=== PATIENT | female | born 1950 | race Caucasian/White ===

== ENCOUNTER → 2018-02-11 | Day surgery (SDC) | payer OTHER ==
--- NOTE | 2018-01-19 08:41 | History and Physical: Surg Cnt ---
History & Physical Date Jan 19, 2018. Chief Complaint sinus infections History of Present Illness The patient is a 67 year old female with complaints of chronic sinusitis, headaches, blocked ears Additional History Hepatic Disease: No Endocrine Disorder: No Kidney Disease: No Hypertension: Yes Heart Disease: No Bleeding Tendencies: No Infectious Diseases: No Allergies Coded Allergies: Meperidine (Verified Adverse Reaction, Intermediate, LOW BP, 05/18/15) No Known Allergies (Verified , 10/29/06) Home Medications Scheduled Calcium Carbonate (Tums), 1-2 TABS PO PRN Folic Acid (Folvite), 400 MCG PO DAILY Losartan Potassium (Cozaar), 12.5 MG PO DAILY Physical Examination Skin: warm/dry, no rash Eyes: normal inspection, EOMI, sclerae normal ENT: normal ENT inspection, pharynx normal Head: normocephalic, atraumatic Neck: supple, no adenopathy, trachea midline Respiratory/Chest: lungs clear, normal breath sounds, no respiratory distress Cardiovascular: regular rate, rhythm, no edema, no murmur Abdomen / GI: normal bowel sounds, non tender Back: normal inspection Extremities: normal inspection, normal range of motion Neurologic/Psych: no motor/sensory deficits, alert, normal reflexes, oriented x 3 Diagnosis chronic otitis and sinusitis Plan of Treatment endoscopic sinus surgery, balloon eustschian tubes
[2018-02-09 08:09] VITALS: Ht 157.5 cm; Wt 72.3 kg
[~2018-02-11] VITALS: Ht 157.5 cm; Wt 72.3 kg
[~2018-02-11] MED LIST: ALUMSUS2 PO; ATROPINE SULFATE 0.1 MG/ML 5ML SYR IV PRN; CALC500C3 PO; CEFAZOLIN 1000MG IV PUSH 7.5 ML IV SCH; DEXAMETHASONE SOD INJ 4 MG/ML VIAL IV PRN; DEXAMETHASONE SOD INJ 4 MG/ML VIAL ONE; EpHEDrine SULFATE INJ 50 MG/ML AMP IV PRN; EpINEphrine INJ 1MG/ML AMP 1 MG/ML AMP ONE; FENTANYL CITRATE INJ 50 MCG/1 ML 2 ML VIAL IV PRN; FENTANYL CITRATE INJ 50 MCG/1 ML 2 ML VIAL ONE; KETOROLAC TROMETHAMINE 30 MG/ML VIAL IV. PRN; LABETALOL HCL IV 5 MG/ML 20ML IV PRN; LACTATED RINGER'S 1000ML 1,000 ML IV SCH; LIDO 2%/EPINEPHRINE 1:100000 20 ML VIAL INFIL ONE; LIDOCAINE 4% MPF SOAK 5 ML = 1 DOSE TOP ONE; LIDOCAINE HCL 2% 2 ML VIAL (20MG/ML) ONE; LISI-789 PO; METOCLOPRAMIDE HCL INJ 5 MG/ML 2 ML VIAL IV PRN; MIDAZOLAM HCL 1 MG/ML 2ML VIAL ONE; MoRPHine SULFATE 10 MG/ML CARP/VIAL IV PRN; ONDANSETRON INJ 2 MG/ML 2 ML VIAL IV PRN; ONDANSETRON INJ 2 MG/ML 2 ML VIAL ONE; OXYC-57 PO; OXYCODONE/ACETAMINOPHEN 5-325 TAB PO PRN; PATIENT'S HEIGHT AND/OR WEIGHT NEEDED SCH; PHENYLEPHRINE 100MCG/ML 5ML SYR IV PRN; PROPOFOL IV EMULSION 10 MG/ML 20 ML VIAL IV ONE; SODIUM CHLORIDE 0.9% 1000ML 1,000 ML IV SCH
--- NOTE | 2018-02-11 08:56 | History & Physical Bridge Note ---
H&P Re-Evaluation Bridge Note: I have examined the patient, reviewed the History & Physical and in the interval since the performance of the History & Physical I have noted the following changes of clinical significance: No changes noted
--- NOTE | 2018-02-11 11:07 | [facility] Post Operative Brief Note ---
Immediate Operative Summary Operative Date Feb 11, 2018. Pre-Operative Diagnosis Chronic Sinusitis Post-Operative Diagnosis same Procedure(s) Performed Endoscopic Sinus Surgery, Right & Left Frontal Sinuses, Right and Left Maxillary Sinues, Right and Left Total Ethmoidectomies and Balloon Right and Left Eustachian Tubes Surgeon Dr. Malissa Roger Windows Systems Administrator Surgeon(s) 0 Estimated Blood Loss 150ml Findings Consistent with Post-Op Diagnosis Specimens none Drains None Anesthesia Type General Complication(s) none Disposition Accompanied Pt To Recovery: yes Disposition: Recovery Room / PACU
--- NOTE | 2018-02-11 11:13 | [facility] Operative Report ---
Operative Report Operative Date Feb 11, 2018. Pre-Operative Diagnosis Chronic Sinusitis Post-Operative Diagnosis same Procedure(s) Performed Endoscopic Sinus Surgery, Right & Left Frontal Sinuses, Right and Left Maxillary Sinues, Right and Left Total Ethmoidectomies and Balloon Right and Left Eustachian Tubes Surgeon Dr. Malissa Roger Day Care Assistant Surgeon(s) 0 Estimated Blood Loss 150ml Findings Mucoceles right and left ethmoids with block nasal frontal ducts Specimens none Drains None Anesthesia Type General Complication(s) none Disposition yes Recovery Room / PACU Indications 67-year-old lady with significant recurrent chronic sinusitis causing headaches infections and eustachian tube obstruction Description of Procedure The patient was brought to the operating room placed supine position general anesthesia was induced using LMA. She was prepped and draped in the usual sterile manner and the Ludei device was calibrated and used for the entire procedure. The left eustachian tube was dilated using the eustachian tube balloon which was left inflated for 2 minutes and then deflated and removed. The right eustachian tube was dilated in a similar manner. The sinuses were decongested using topical cottonoids with a solution of 4 cc of 4% Xylocaine mixed with 1 cc of epinephrine. Injection of 2% Xylocaine with 1-100,000 strength epinephrine was also used. The left nasal frontal duct was cannulated with the guidewire and dilated using the 6 mm balloon the guidewire was left in place as a marker for frontal sinusotomy. The shaver coupled with the BrainLab device was used to remove the residual anterior wall of the Agger- nasi-cell and adhesions between the middle turbinate and the lateral wall, following the guidewire superiorly, widely opening up the nasofrontal duct but leaving the mucosa posteriorly and laterally intact. At this point total ethmoidectomy was performed there were mucoceles in the anterior and posterior ethmoids which were removed using the shaver, removing purulent material from the anterior and posterior ethmoid air cells. The skull base and lamina papyracea were delineated with the BrainLab device and followed anteriorly to exonerate all the posterior and all the anterior ethmoid air cells up to the previously dilated nasofrontal duct the maxillary sinus was opened by removing the adhesions from the middle turbinates laterally. The right frontal sinusotomy total ethmoidectomy maxillary sinus antrostomy was performed in a similar manner. Contour stents were placed in the nasal frontal ducts and regular propel stents were placed in the ethmoid cavities bilaterally. The patient tired procedure well was taken recovery area in satisfactory condition. I attest to the content of the Intraoperative Record and any orders documented therein. Any exceptions are noted below.
--- NOTE | 2018-02-11 11:14 | Discharge Instructions-SurgCtr ---
Discharge Instructions Date of Service Feb 11, 2018. Visit Reason for Visit: Chronic Sinusitis Discharge Discharge Diagnosis / Problem: Same Discharge Goals Goal(s): Improve disease control Activity Recommendations Activity Limitations: resume your previous activity Anesthesia . Post Anesthesia Instructions: If you have had General Anesthesia or IV Sedation: * Do not drive today. * Resume driving when surgeon permits. * Do not make important decisions or sign legal documents today. * Call surgeon for: 1. Temperature elevations greater than 101 degrees F. 2. Uncontrollable pain. 3. Excessive bleeding. 4. Persistent nausea and vomiting. 5. Medication intolerance (nausea, vomiting or rash). * For nausea and vomiting use only clear liquids such as: tea, soda, bouillon until nausea subsides, then gradually increase diet as tolerated. * If you have any concerns or questions, call your surgeon's office. If physician is unavailable and it is an emergency, call 911 or go to the nearest emergency room. . Instructions / Follow-Up Instructions / Follow-Up ACTIVITY RECOMMENDATIONS: * Being up and around is good, but no strenuous activity, heavy lifting or physical exertion for one week. * Keep your head elevated 30 degrees when lying down or sleeping. * Do not blow your nose for 48 hours, sniff back instead. * Avoid hot showers. OVER THE COUNTER MEDICATIONS: * You may use Tylenol * Avoid aspirin or aspirin containing products, e.g. as they may increase bleeding. SPECIAL CARE INSTRUCTIONS: * Expect to have bloody drainage from your nose and/or down your throat for one to three days. Change drip pad as needed. * Begin irrigating your nose with saline solution today, at least six to ten times per day and sniff back to help remove old clots or crust. * You may experience nasal and facial congestion, pain and pressure, this is normal. * Please call with any significant and/or progressive pain, redness, swelling around the eyes, visual changes, fever of 101.5 degrees F, active bleeding or any problems or concerns. * If active bleeding occurs, spray the nose three times at one minute intervals with Afrin spray and call or cell phone: . If unable to reach the doctor, go to the nearest Emergency Department. Special Diet: * Avoid extremely hot fluids. FOLLOW UP VISIT: Follow-up Visit with Dr. Roger If not already scheduled, please call to schedule. Diet Recommendations Home Diet: no limitations Procedures Procedures Performed: Endoscopic Sinus Surgery, Right & Left Frontal Sinuses, Right and Left Maxillary Sinues, Right and Left Total Ethmoidectomies and Balloon Right and Left Eustachian Tubes Pending Studies Studies pending at discharge: no Medical Emergencies . Who to Call and When: Medical Emergencies: If at any time you feel your situation is an emergency, please call 911 immediately. . Non-Emergent Contact Non-Emergency issues call your: Primary Care Provider . . "Provider Documentation" section prepared by Cece Roger. Tory [facility]OH[facility] Drug Monitoring Program Search Results: no issues identified
[2018-02-11 12:01] VITALS: TEMP 36.5
--- NOTE | 2018-02-11 12:32 | Anesthesia Progress Nt - [facility] ---
Anesthesia Post Op Note Date & Time Feb 11, 2018 at 12:31 Vital Signs Pain Intensity: 0 Vital Signs Past 12 Hours Date Time Temp Pulse Resp B/P (MAP) Pulse Ox O2 Delivery O2 Flow Rate FiO2 02/11/18 12:01 36.5 73 18 163/83 (109) 96 Room Air 02/11/18 11:53 37 71 13 02/11/18 11:53 73 13 91 02/11/18 11:50 141/90 02/11/18 11:48 77 12 02/11/18 11:48 78 12 96 02/11/18 11:45 143/86 02/11/18 11:43 69 11 02/11/18 11:43 68 11 92 02/11/18 11:41 138/89 02/11/18 11:38 71 13 02/11/18 11:38 74 13 96 02/11/18 11:36 148/90 02/11/18 11:33 74 7 100 02/11/18 11:33 75 7 02/11/18 11:30 140/86 02/11/18 11:28 74 8 02/11/18 11:28 73 8 98 02/11/18 11:26 124/84 02/11/18 11:23 74 14 94 02/11/18 11:23 74 14 02/11/18 11:21 159/77 02/11/18 11:18 82 14 98 02/11/18 11:18 83 14 02/11/18 11:16 147/67 02/11/18 11:13 85 14 02/11/18 11:13 85 14 98 02/11/18 11:11 166/86 02/11/18 11:08 86 14 02/11/18 11:08 86 14 96 02/11/18 11:06 168/106 02/11/18 11:04 165/99 02/11/18 11:04 36.3 87 16 165/99 97 Humidified Oxygen 6 Mask 02/11/18 07:16 36.5 81 16 169/89 (115) 98 Room Air Notes Mental Status: alert / awake / arousable, participated in evaluation Pt Amnestic to Procedure: Yes Nausea / Vomiting: adequately controlled Pain: adequately controlled Airway Patency, RR, SpO2: stable & adequate BP & HR: stable & adequate Hydration State: stable & adequate Anesthetic Complications: no major complications apparent
[2018-02-11 12:34] VITALS: BP 153/92; PULSE 72; O2SAT 95
== END | disposition home or self-care (01) ==
LOC: X.SURG 06:43
PROVIDERS: ATTEND Otolaryngology
DX: J32.9 Chronic sinusitis, unspecified (principal); J34.1 Cyst and mucocele of nose and nasal sinus; I10 Essential (primary) hypertension; K21.9 Gastro-esophageal reflux disease without esophagitis